=== PATIENT | male | born 1975 | race Two or more races ===

== ENCOUNTER 2025-07-25 13:53 | Emergency (ER) | payer OTHER ==
[~2025-07-25] VITALS: Ht 167.6 cm; Wt 74.8 kg
[2025-07-25] MEDS ORDERED: ENALAPRILAT DIHYDRATE 1.25 MG/ML VIAL IV ONE (15:15)
[2025-07-25] MEDS ORDERED: ONDANSETRON HCL 2 MG/ML VIAL IV ONE (15:15)
[2025-07-25] MEDS ORDERED: FAMOTIDINE/PF 20 MG/2 ML VIAL IV ONE (15:15)
[2025-07-25] MEDS ORDERED: 0.9 % SODIUM CHLORIDE 500 ML IV ONE (15:15)
[2025-07-25 15:37] LABS: BASO % 0.3 % (0.1-1.2); EOS # 0.00 (0.04-0.54); EOS % 0.0 % (0.7-7.0); LYMPH # 0.90 (1.18-3.74); LYMPH % 7.8 % (19.3-53.1); MEAN PLATELET VOLUME 8.90 fl (9.4-12.4); MONO # 0.24 (0.24-0.82); MONO % 2.1 % (4.7-12.5); NEUT # 10.33 (1.56-6.13); NEUT % 89.4 % (34.0-71.1); RED CELL DISTRIBUTION WIDTH 13.4 % (11.6-14.4)
[2025-07-25 16:09] LABS: ALT/SGPT 91.0 U/L (12-78); AST/SGOT 59.0 U/L (15-37); BILIRUBIN TOTAL 0.53 mg/dL (0.3-1.2); BUN CREA RATIO 10.0 (7.0-25.0); CREATININE SERUM 0.88 mg/dL (0.70-1.30); GFR 90.94; GLOBULINA 4.5 G/DL (2.4-3.5); GLUCOSE FASTING 127.0 mg/dL (65-100); OSMOLALITY SERUM 278.0 MOSM/KG (275-295)
[2025-07-25] MEDS ORDERED: KETOROLAC TROMETHAMINE 30 MG VIAL IV ONE (16:15)
[2025-07-25 16:36] LABS: URINE APPEARANCE Clear; URINE BILIRRUBIN Negative (NEGATIVE); URINE BLOOD Small; URINE COLOR Yellow; URINE GLUCOSE Negative (NEGATIVE); URINE KETONE 15 (NEGATIVE); URINE LEUKOCYTE Negative; URINE NITRATE Negative; URINE PROTEIN 30 (NEGATIVE); URINE UROBILINOGEN 0.2 E.U./dl
[2025-07-25 16:44] LABS: URINE BACTERIA 29.9 uL (0.0-1933); URINE EPITHELIAL CELLS 6.1 uL (0.0-38.8); URINE RBC 3.2 uL (0.0-20.8); URINE WBC 12.2 uL (0.0-23.2)
[2025-07-25 16:52] LABS: COVID-19 AG NEGATIVE (NEGATIVE)
[2025-07-25 16:55] LABS: URINE CAST 1.17 uL (0.0-1.40)
[2025-07-25] MEDS ORDERED: SUCRALFATE 1 G TABLET PO ONE (17:45)
[2025-07-25] MEDS ORDERED: ONDANSETRON ODT4 MG PO (20:28)
[2025-07-25] MEDS ORDERED: PEPCID AC20 MG PO (20:28)
[2025-07-25] MEDS ORDERED: CARAFATE1 GM PO (20:28)
== END 2025-07-25 20:37 ==
LOC: ER 13:53
PROVIDERS: Emergency Medicine
DX: K29.70 Gastritis, unspecified, without bleeding (principal); Z20.822 Contact with and (suspected) exposure to COVID-19; N28.1 Cyst of kidney, acquired